=== PATIENT | male | born 1970 | race Two or more races ===

== ENCOUNTER 2017-11-06 13:22 | Emergency (ER) | payer MEDICAID ==
[~2017-11-06] VITALS: Ht 162.6 cm; Wt 83.5 kg
[2017-11-06 14:10] VITALS: BP 125/86
== END 2017-11-06 15:11 | disposition home or self-care (01) ==
LOC: ER 13:22
DX: S90.464A Insect bite (nonvenomous), right lesser toe(s), initial encounter (principal); W57.XXXA Bitten or stung by nonvenomous insect and other nonvenomous arthropods, initial encounter; Y93.89 Activity, other specified; Y92.89 Other specified places as the place of occurrence of the external cause; Y99.8 Other external cause status